=== PATIENT | female | born 1935 | race Caucasian/White ===

== ENCOUNTER → 2017-03-08 | Emergency (ER) | payer OTHER ==
[~2017-03-08] VITALS: Ht 157.5 cm; Wt 63.5 kg
[~2017-03-08] MED LIST: COZAAR100 MG PO; GLUCOPHAGE XR500 MG PO; LITHIUM CARBON300 MG PO; NABUMETONE500 MG PO; NEURONTIN300 MG PO; PRAVASTATIN SOD20 MG PO; SYNTHROID50 MCG PO; VERAPAMIL ER180 MG PO
== END | disposition left against medical advice (07) ==
LOC: ER 10:01
DX: E11.65 Type 2 diabetes mellitus with hyperglycemia (principal); M25.512 Pain in left shoulder

== ENCOUNTER 2020-11-21 13:04 | Emergency (ER) | payer OTHER ==
[~2020-11-21] VITALS: Ht 165.1 cm; Wt 74.8 kg
[2020-11-21] MEDS ORDERED: COZAAR100 MG PO (13:24)
[2020-11-21] MEDS ORDERED: CITALOPRAM20 MG/10 M PO (13:24)
[2020-11-21] MEDS ORDERED: CARBIDOPA-LEVO1 EAC1 PO (13:24)
[2020-11-21] MEDS ORDERED: ULTRACET PO (20:54)
== END 2020-11-21 21:12 | disposition home or self-care (01) ==
LOC: ER 13:04
DX: S32.512A Fracture of superior rim of left pubis, initial encounter for closed fracture (principal); S32.592A Other specified fracture of left pubis, initial encounter for closed fracture; W18.09XA Striking against other object with subsequent fall, initial encounter; Y93.89 Activity, other specified; Y92.018 Other place in single-family (private) house as the place of occurrence of the external cause; Y99.8 Other external cause status

== ENCOUNTER 2021-01-02 09:13 | Outpatient (CLI) | payer OTHER ==
[~2021-01-02 09:13] MED LIST changes: +CARBIDOPA-LEVO1 EAC1 PO; +CITALOPRAM20 MG/10 M PO; +ULTRACET PO
== END 2021-01-02 09:22 | disposition home or self-care (01) ==
LOC: RAD 09:13
PROVIDERS: ATTEND Orthopaedic Surgery
DX: S32.692A Other specified fracture of left ischium, initial encounter for closed fracture (principal)